=== PATIENT | male | born 1990 | race African-American/Black ===

== ENCOUNTER 2016-06-01 06:36 | Emergency (ER) | payer SELFPAY ==
[~2016-06-01] VITALS: Ht 188 cm; Wt 98.9 kg
[~2016-06-01 06:36] MED LIST: NORCO 10-325 T1 EACH ORAL; XANAX0.25 MG ORAL
[2016-06-01 06:40] VITALS: BP 135/80
[2016-06-01] MEDS ORDERED: Cephalexin 500mg cap ORAL ONE (07:15)
--- NOTE | 2016-06-01 07:21 | Emergency Room Report ---
History of Present Illness General Chief Complaint: Skin Rash/Abscess Source: Patient Present Illness HPI Patient presents with complaints of skin rash to the lower chin Patient states that this is been ongoing for multiple days cannot give a specific time line Pain is a burning sensation 5 /10 Denies any fevers or chills Denies any posterior neck pain or photophobia Patient feels that the area likely started after shaving razor Allergies: Coded Allergies: No Known Allergies (Unverified , 06/01/16) Patient History Past Medical History: see triage record Pertinent Family History: none Reviewed Nursing Documentation: PMH: Agreed, PSxH: Agreed Nursing Documentation-PMH Past Medical History: No Stated History Review of Systems All Other Systems: negative except mentioned in HPI Physical Exam Vital Signs Date Time Temp Pulse Resp B/P Pulse Ox O2 Delivery O2 Flow Rate FiO2 06/01/16 06:29 98.1 81 16 135/80 99 06/01/16 06:40 Room Air Sp02 EP Interpretation: reviewed, normal General Appearance: no apparent distress Head: normocephalic, atraumatic Eyes: bilateral eye EOMI, bilateral eye PERRL ENT: hearing grossly normal, normal pharynx Neck: full range of motion, supple, other - Skin lesion as noted below, submental region Respiratory: chest non-tender, lungs clear Cardiovascular #1: regular rate, rhythm Musculoskeletal: normal inspection Neurologic: alert, oriented x3, responsive, 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 No signs of any surrounding cellulitis, no obvious masses Lymphatic: no adenopathy Medical Decision Making Diagnostic Impression: Primary Impression: Folliculitis Additional Impression: Excoriation ER Course The area in question appears to have a somewhat chronic appearance to it There is however an acute process, but the area is noted appearing to be somewhat excoriated, there's possible secondary cellulitis no obvious streaking of erythema or fluctuance no obvious discharge Patient was placed on antibiotics There is a possible fungal component and therefore placed on ointment as well and requires close outpatient followup Last Vital Signs Date Time Temp Pulse Resp B/P Pulse Ox O2 Delivery O2 Flow Rate FiO2 06/01/16 06:40 98.1 81 16 135/80 99 Room Air Status: improved Disposition: HOME, SELF-CARE Condition: Improved Scripts Acetaminophen With Codeine (T#3) (TYLENOL #3 TAB*) Y Tab 1 TAB ORAL Q8H Y for For Pain, #10 TAB Prov: SHAVONNE HINES D.O. 06/01/16 Nystatin/Triamcinolone (Nystatin-Triamcinolone Ointm) 15 Gm Oint...g. 1 APPLIC TOPIC BID for 7 Days, APPLIC Prov: SHAVONNE HINES D.O. 06/01/16 Ibuprofen* (MOTRIN*) 600 Mg Tablet 600 MG ORAL Q8H Y for For Pain, #20 TAB 0 Refills Prov: SHAVONNE HINES D.O. 06/01/16 Trimethoprim/Sulfamethoxazole 160/800* (BACTRIM DS TABLET*) 1 Each Tablet 1 TAB ORAL Q12H, #20 TAB 0 Refills Prov: SHAVONNE HINES D.O. 06/01/16 Cephalexin* (KEFLEX*) 500 Mg Capsule 500 MG ORAL EVERY 6 HOURS, #40 CAP 0 Refills Prov: SHAVONNE HINES D.O. 06/01/16 Referrals: NOT CHOSEN [facility]/,REFERRING (PCP) Additional Instructions: Patient is provided with the discharge instructions notified to follow up with primary doctor in the next 2-3 days otherwise return to the er with any worsening symptoms. Please note that this report is being documented using [employer] technology. This can lead to erroneous entry secondary to incorrect interpretation by the dictating instrument. SHAVONNE HINES D.O. Jun 01, 2016 07:21
[2016-06-01] MEDS ORDERED: BACTRIM DS TAB1 EAC1 ORAL (07:25)
[2016-06-01] MEDS ORDERED: MYCOLOG CREA1 APPLIC TOPIC (07:25)
[2016-06-01] MEDS ORDERED: KEFLEX500 MG ORAL (07:25)
[2016-06-01] MEDS ORDERED: ACETAMINOPHEN-1 EAC1 ORAL (07:25)
[2016-06-01] MEDS ORDERED: IBUPROFEN600 MG ORAL (07:25)
[2016-06-01 07:41] VITALS: BP 130/78
== END 2016-06-01 07:44 | disposition home or self-care (01) ==
LOC: EDBD 06:36 → EMR 07:05
DX: L73.9 Follicular disorder, unspecified (principal); F42.4 Excoriation (skin-picking) disorder
CPT/HCPCS: 99284

== ENCOUNTER 2018-09-25 00:45 | Emergency (ER) | payer SELFPAY ==
[~2018-09-25] VITALS: Ht 188 cm; Wt 88.5 kg
[~2018-09-25 00:45] MED LIST changes: +ACETAMINOPHEN-1 EAC1 ORAL; +BACTRIM DS TAB1 EAC1 ORAL; +IBUPROFEN600 MG ORAL; +KEFLEX500 MG ORAL; +MYCOLOG CREA1 APPLIC TOPIC
[2018-09-25 00:48] VITALS: BP 136/86
--- NOTE | 2018-09-25 00:48 | NUR ---
ED Nurse Note: Patient presents with complaints of bite injury to left fourth digit 2 days ago. Patient reports that finger became increasingly worse with pain redness and swelling. pain 10/10.
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
[2018-09-25] MEDS ORDERED: Vancomycin 1.5 GM in NS 275 ML IVPB ONE (01:00)
[2018-09-25] MEDS ORDERED: Morphine Sulfate 4mg/ml Inj (IV USE ONLY) IVP ONE ×3 (01:00→03:15)
[2018-09-25] MEDS ORDERED: Unasyn 3gm Inj IV ONE (01:00)
--- NOTE | 2018-09-25 01:03 | NUR ---
ED Nurse Note: Patient tolerated pain medication momentarily. 10 minutes later patient complains of recurrent intensityof pain.
[2018-09-25 01:55] LABS: BASOPHILS % (AUTO) 0.7 % (0.0-2.0); EOSINOPHILS % (AUTO) 0.7 % (0.0-3.0); HEMATOCRIT 37.6 % (42.0-52.0); HEMOGLOBIN 12.9 G/DL (14.2-18.0); LYMPHOCYTES % (AUTO) 10.4 % (20.0-45.0); MEAN CORPUSCULAR VOLUME 91 FL (80-99); MONOCYTES % (AUTO) 7.9 % (1.0-10.0); NEUTROPHILS % (AUTO) 80.2 % (45.0-75.0); PLATELET COUNT 193 K/UL (150-450); RED BLOOD COUNT 4.13 M/UL (4.70-6.10); RED CELL DISTRIBUTION WIDTH 10.7 % (11.6-14.8); WHITE BLOOD COUNT 17.3 K/UL (4.8-10.8)
[2018-09-25 02:00] VITALS: BP 116/82
[2018-09-25] MEDS ORDERED: fentaNYL 100 mcg/2 mL IV ONE ×2 (02:00→05:45)
--- NOTE | 2018-09-25 02:00 | NUR ---
ED Nurse Note: Patient given fentanyl patient reports moderate decrease in pain.
[2018-09-25 02:03] LABS: ANION GAP 10 mmol/L (5-15); BLOOD UREA NITROGEN 8 mg/dL (7-18); CALCIUM 9.5 MG/DL (8.5-10.1); CARBON DIOXIDE 29 MMOL/L (21-32); CHLORIDE 101 MMOL/L (98-107); CREATININE 0.9 MG/DL (0.55-1.30); POTASSIUM 3.8 MMOL/L (3.5-5.1); SODIUM 139 MMOL/L (136-145)
[2018-09-25 02:08] LABS: ALANINE AMINOTRANSFERASE 30 U/L (12-78); ALBUMIN 4.2 G/DL (3.4-5.0); ALBUMIN/GLOBULIN RATIO 1.4 (1.0-2.7); ALKALINE PHOSPHATASE 70 U/L (46-116); ASPARTATE AMINO TRANSFERASE 62 U/L (15-37); BILIRUBIN,TOTAL 0.4 MG/DL (0.2-1.0)
[2018-09-25] MEDS ORDERED: HYDROmorphone 1mg/NS 50ml IVPB 50 ML IVPB ONE (02:15)
--- NOTE | 2018-09-25 03:02 | NUR ---
ED Nurse Note: Patient reports return of recurrent pain level. Is moaning and calling out incessantly. Patient helped to employ non-pharmacologic efforts to reduce pain.
[2018-09-25 03:52] VITALS: BP 131/79
--- NOTE | 2018-09-25 04:03 | NUR ---
ED Nurse Note: Patient is resting quietly at this time, will continue to monitor. vital signs stable, no tachycardia, no hypertension.
[2018-09-25] MEDS ORDERED: Hydromorphone 0.5mg/0.5ml inj IVP ONE ×2 (04:30→05:30)
[2018-09-25] MEDS ORDERED: Tetanus/Diptheria/Pertussis IM ONE (04:45)
--- NOTE | 2018-09-25 05:15 | NUR ---
ED Nurse Note: Patient expresses more break through pain. ERMD informed. Patient reports that second medication given worked better than the rest.
--- NOTE | 2018-09-25 05:45 | NUR ---
ED Nurse Note: Patient tolerated medication well. Pain still breaks through but intensity is less. will continue to monitor.
[2018-09-25 06:27] VITALS: BP 131/74
--- NOTE | 2018-09-25 06:45 | NUR ---
ED Nurse Note: [facility] with Mariana COR[facility]. Patient is resting quietly awaiting transport.
--- NOTE | 2018-09-25 07:14 | NUR ---
HAND-OFF: Report given to Maddy CORTEZ . 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 Patient made aware.
[2018-09-25 07:27] VITALS: BP 142/73
--- NOTE | 2018-09-25 07:40 | NUR ---
ED Nurse Note: patient given toradol as ordered per Dr. Holm as patient was c/o 10/ pain. patient denies any drug allergies. vital signs stable, see flowsheet.
[2018-09-25] MEDS ORDERED: Ketorolac 30mg Inj IV ONE (07:45)
[2018-09-25] MEDS ORDERED: Ketorolac 30mg Inj ONE (07:47)
[2018-09-25 07:54] VITALS: BP 142/73
--- NOTE | 2018-09-25 07:55 | NUR ---
ED Nurse Note: patient is being transferred to [facility] with all of his belongings in stable condtion.
--- NOTE | 2018-09-25 10:27 | Diagnostic Imaging Report ---
Indication: Dyspnea Comparison: None A single view chest radiograph was obtained. Findings: Cardiomediastinal appearance is within normal limits for age. The lungs are clear. Pulmonary vascularity is appropriate. The diaphragmatic contour is smooth and costophrenic angles are sharp. No pleural effusions are identified. The bones are unremarkable. Impression: No acute findings
--- NOTE | 2018-09-25 10:31 | Diagnostic Imaging Report ---
Indication: left hand pain. Comparison: None Findings: 3 views of the left hand were obtained. Normal alignment is demonstrated. No acute fractures, erosions, or periosteal reaction are seen. Soft tissues are unremarkable. Impression: No acute findings.
--- NOTE | 2018-09-25 14:54 | Cardiology Report ---
APPROVED REPORT EKG Measurement Heart [id number] Normal sinus rhythm with sinus arrhythmia Normal ECG
== END 2018-09-25 08:00 | disposition short-term general hospital (02) ==
LOC: EDBD 00:45 → EDUNIT# 00:45 → EMR 01:11 → EDBEDREQ 01:20 → EMR 08:00
DX: M65.9 Synovitis and tenosynovitis, unspecified (principal); L03.114 Cellulitis of left upper limb; Z23 Encounter for immunization; F17.200 Nicotine dependence, unspecified, uncomplicated; R06.00 Dyspnea, unspecified
CPT/HCPCS: 36415; 71045; 73130; 80053; 85025; 85651; 86140; 87040; 90471; 90715; 93005; 96361; 96365; 96366; 96375; 96376; 99285; J0295; J1170; J1885; J2270; J2405; J3010; J3370; J7050